=== PATIENT | male | born 1960 | race Caucasian/White ===

== ENCOUNTER 2017-12-21 06:04 | Day surgery (SDC) | payer OTHER ==
[2017-12-21] MEDS ORDERED: LIDOCAINE 1% 2 ML INJ ONE (06:36)
[2017-12-21] MEDS ORDERED: ceFAZolin 2 GM/SWFI 2 GM/20 ML SYR IVP ONE (06:37)
[2017-12-21] MEDS ORDERED: LR 1,000 ML IV ONE (06:38)
[2017-12-21] MEDS ORDERED: LIDOCAINE 1% 2 ML INJ ID PRN (06:38)
[2017-12-21] MEDS ORDERED: BUPIVACAINE 0.5% 30 ML SDV ONE (08:01)
--- NOTE | 2017-12-21 08:05 | PDHPUP ---
History & Physical Update H&P update statement: This history and physical update is based on an assessment of the patient which was completed after admission or registration (within 24 hours), but prior to the surgery/procedure. H&P update: H&P reviewed & patient examined, no change in patient's condition since H&P completed
[2017-12-21] MEDS ORDERED: MIDAZOLAM 2 MG/2 ML VIAL ONE (08:26)
[2017-12-21] MEDS ORDERED: MIDAZOLAM 2 MG/2 ML VIAL IVP ONE (08:27)
--- NOTE | 2017-12-21 08:32 | PDANEPAE ---
ANE History of Present Illness lap inguinal hernia ANE Past Medical History - Cardiovascular History Hx Hypertension: No Hx Arrhythmias: No Hx Chest Pain: No Hx Coronary Artery / Peripheral Vascular Disease: No Hx CHF / Valvular Disease: No Hx Palpitations: No - Pulmonary History Hx COPD: No Hx Asthma/Reactive Airway Disease: No Hx Recent Upper Respiratory Infection: No Hx Oxygen in Use at Home: No Hx Sleep Apnea: No Sleep Apnea Screening Result - Last Documented: Negative - Neurologic History Hx Cerebrovascular Accident: No Hx Seizures: No Hx Dementia: No - Endocrine History Hx Diabetes: No - Renal History Hx Renal Disorders: Yes Renal History Comment: HX OF STONES - Liver History Hx Hepatic Disorders: No - Neurological & Psychiatric Hx Hx Neurological and Psychiatric Disorders: Yes Neurological / Psychiatric History Comment: DEPRESSION - Cancer History Hx Cancer: No - Congenital Disorder History Hx Congenital Disorders: No - GI History Hx Gastrointestinal Disorders: No - Other Health History Other Health History: HIV DX 1989. NEUROPATHY. BELLS PALSY - Chronic Pain History Chronic Pain: Yes (INQUINAL AREAS) - Surgical History Prior Surgeries: ABLATION OF KIDNEY STONE 08/2016. ORIF RT ANKLE WITH POST HARDWARE REMVL. ANE Review of Systems Review of Systems: - Exercise capacity METS (RN): 4 METS ANE Patient History - Allergies Allergies/Adverse Reactions: No Known Allergies Allergy (Unverified 09/01/16 13:32) - Home Medications Home medications: home medication list seen and reviewed Home Medications: Gabapentin BID 09/01/16 [Last Taken 12/20/17] Odefsey Tablet DAILY 09/01/16 [Last Taken 12/20/17] Remeron HS 09/01/16 [Last Taken 12/20/17] - NPO status NPO Status: no food or drink >8 hours NPO Since - Liquids (Date): 12/20/17 NPO Since - Liquids (Time): 20:00 NPO Since - Solids (Date): 12/20/17 NPO Since - Solids (Time): 20:00 - Anes Hx Anes Hx: no prior problems - Smoking Hx Smoking Status: Former smoker - Alcohol Use Alcohol Use: Sober - Family Anes Hx Family Anes Hx: none ANE Labs/Vital Signs - Vital Signs Blood Pressure: 109/70 Heart Rate: 68 Respiratory Rate: 16 O2 Sat (%): 96 Height: 185.42 cm Weight: 79.379 kg ANE Physical Exam - Airway Mallampati Score: Class 1 Mouth exam: normal dental/mouth exam - Pulmonary Pulmonary: no respiratory distress - Cardiovascular Cardiovascular: regular rate and rhythym - ASA Status ASA Status: II ANE Anesthesia Plan Anesthesia Plan: general endotracheal anesthesia (R/B/A explained and patient agrees to proceed)
[2017-12-21] MEDS ORDERED: PROPOFOL/EMULSION 500 MG/50 ML BOTTLE IV ONE (08:44)
[2017-12-21] MEDS ORDERED: ROCURONIUM 50 MG/5 ML VIAL ONE (08:44)
[2017-12-21] MEDS ORDERED: fentaNYL 100 MCG/2 ML INJ ONE ×2 (08:44→10:20)
[2017-12-21] MEDS ORDERED: ONDANSETRON 4 MG/2 ML VIAL ONE (08:45)
[2017-12-21] MEDS ORDERED: LIDOCAINE 2% 100 MG/5 ML SYR ONE (08:45)
[2017-12-21] MEDS ORDERED: DEXAMETHASONE 4 MG/ML VIAL ONE (08:45)
[2017-12-21] MEDS ORDERED: SUGAMMADEX SODIUM 200 MG/2 ML VIAL IVP ONE (09:50)
--- NOTE | 2017-12-21 10:00 | POSTOPPROG ---
Post Op Note Date of Operation: 12/21/17 Surgeon: Nelli Guzman [employer] Crane Operator: yusuf Anesthesiologist: rosalia Anesthesia: GET(General Endotracheal) Pre-op Diagnosis: RIH Post-op Diagnosis: BIH Indication: 57 yo with large BIH Procedure: lap BIH with mesh Findings: B indirect inguinal hernia Inf/Abcess present in the surg proc area at time of surgery?: No Depth: Superfical (Skin SQ) EBL: Minimal Specimen(s): none
[2017-12-21] MEDS ORDERED: ONDANSETRON 4 MG/2 ML VIAL IVP PRN (10:19)
[2017-12-21] MEDS ORDERED: METOCLOPRAMIDE 10 MG/2 ML VIAL IVP PRN (10:19)
[2017-12-21] MEDS ORDERED: OXYCODONE/APAP 5/325 TAB PO PRN (10:19)
[2017-12-21] MEDS ORDERED: ACETAMINOPHEN 500 MG TAB PO PRN (10:19)
[2017-12-21] MEDS ORDERED: PHENYLEPHRINE HCL 100 MCG/ML SYR IVP PRN (10:19)
[2017-12-21] MEDS ORDERED: HYDROmorphONE/DILAUDID 1 MG/ML INJ IVP PRN (10:19)
[2017-12-21] MEDS ORDERED: ALBUTEROL 3 ML DEYVIAL IH PRN (10:19)
[2017-12-21] MEDS ORDERED: LABETALOL HCL 5 MG/ML 20 ML MDV IVP PRN (10:19)
[2017-12-21] MEDS ORDERED: LR 500 ML IV PRN (10:19)
[2017-12-21] MEDS ORDERED: PROMETHAZINE HCL 25 MG/ML INJ IVP PRN (10:19)
[2017-12-21] MEDS ORDERED: DEXAMETHASONE 4 MG/ML VIAL IVP PRN (10:19)
[2017-12-21] MEDS ORDERED: HYDROCODONE/APAP 5/325 TAB PO PRN (10:19)
[2017-12-21] MEDS ORDERED: NALOXONE HCL 0.4 MG/ML INJ IVP PRN (10:19)
[2017-12-21] MEDS ORDERED: MEPERIDINE 25 MG/ML SYR IVP PRN (10:19)
[2017-12-21] MEDS: fentaNYL 100 MCG/2 ML INJ IVP PRN ×2 (10:20→10:27)
--- NOTE | 2017-12-21 10:21 | POSTANESTH ---
Post Anesthetic Evaluation Cardiovascular Status: Normal, Stable Respiratory Status: Normal, Stable Level of Consciousness/Mental Status: Can Participate in Eval Pain Control: Adequate, Prn Tx Ordered Nausea/Vomiting Control: Adequate, Prn Tx Ordered Complications Possibly Related to Anesthesia: None Noted
[2017-12-21] MEDS ORDERED: HYDROmorphONE/DILAUDID 1 MG/ML INJ ONE (10:46)
[2017-12-21] MEDS ORDERED: HYDROCODONE/APAP 5/325 TAB ONE (11:13)
--- NOTE | 2017-12-21 12:50 | GOP ---
[f rep st] OPERATIVE REPORT DATE OF OPERATION: 12/21/2017 SURGEON: Nelli Guzman MD SOFTWARE SUPPORT SPECIALIST: Kerrie Martin, MYLA. ANESTHESIA: General. ANESTHESIOLOGIST: Antonio Osuna MD. PREOPERATIVE DIAGNOSIS: Large right inguinal hernia. POSTOPERATIVE DIAGNOSIS: Bilateral indirect initial inguinal hernia. PROCEDURE PERFORMED: Laparoscopic bilateral inguinal hernia repair with mesh. FINDINGS: Bilateral indirect inguinal hernias. He also developed subcutaneous air during the case. SPECIMENS: None. ESTIMATED BLOOD LOSS: 5 cc. INDICATIONS: The patient is a 57-year-old man who had a giant right inguinal hernia. DESCRIPTION OF PROCEDURE: The patient was brought into the operating room, placed supine on the tabl e, and general anesthesia was administered. His abdomen was prepped and draped in the usual sterile fashion. I infiltrated all sites with 0.5% Marcaine prior to making an incision. I made an incision beneath the scar, below his umbilicus. I dissected down through the subcutaneous tissues until I encountered the anterior rectus sheath. I divided this. I swept his rectus muscles laterally, and inserted a balloon-tip trocar directed towards the pubis. I performed hand insufflati on with the camera in place. I exchanged this for the working balloon. He was placed in the [place] position, and pressure was maintained at 15 mmHg. Under direct vision, I placed a 5 mm suprapubic trocar and a 5 mm trocar between the first and second trocars. I identified the hernia on the right side. It was very large and stuck. I was able to re duce the peritoneum completely. I cleared away the pubic tubercle and kept the inferior epigastric v essels anterior to the plane. I unrolled a piece of laparoscopic self-fixating ProGrip mesh to cover the direct, indirect, and femoral spaces. This was tacked to the pubic tubercle and anteriorly. I explored his left side. In a similar fashion, he had a hernia, although it was not as large. This w as also reduced, and a laparoscopic self-fixating ProGrip mesh was unrolled to cover each of the spac es intact. The preperitoneal space was allowed to desufflate. The fascia at the 10 mm trocar site was closed wi th 0 Vicryl, skin closed with 4-0 Monocryl, and Dermabond applied. He was awakened in the operating room, extubated, and transferred to PACU in stable condition. /[id number]/MODL
[2017-12-21 13:07] VITALS: TEMP 96.8
[2017-12-21 13:09] VITALS: BP 124/88; PULSE 80; RESP 16; O2SAT 94
== END 2017-12-21 11:42 | disposition home or self-care (01) ==
LOC: FSGY 06:04
PROVIDERS: ATTEND Surgery
PROC: 0YUA4JZ Supplement Bilateral Inguinal Region with Synthetic Substitute, Percutaneous Endoscopic Approach (ICD-10-PCS; principal; 2017-12-21 08:30)
DX: K40.20 Bilateral inguinal hernia, without obstruction or gangrene, not specified as recurrent (principal); R10.31 Right lower quadrant pain; B18.2 Chronic viral hepatitis C; Z21 Asymptomatic human immunodeficiency virus [HIV] infection status; Z79.82 Long term (current) use of aspirin; Z87.442 Personal history of urinary calculi; Z87.891 Personal history of nicotine dependence
CPT/HCPCS: C1727; C1781; J0690; J1100; J1170; J2001; J2250; J2405; J2704; J3010

== ENCOUNTER → 2019-04-24 | Outpatient (CLI) | payer MEDICAID | LOC: FLAB 15:15 ==

== ENCOUNTER → 2019-04-24 | Outpatient (CLI) | payer MEDICAID | LOC: FIMAGING 16:45 ==

== ENCOUNTER 2019-05-14 21:22 | Emergency (ER) | payer MEDICAID | END 2019-05-15 06:00 | disposition home or self-care (01) ==